=== PATIENT | male | born 1935 | race Hispanic/Latino ===

== ENCOUNTER 2019-04-30 13:24 | Emergency (ER) | payer OTHER ==
[2019-05-01] MEDS ORDERED: BENA40TA9 PO (11:52)
[2019-05-01] MEDS ORDERED: LEVO150T11 PO (11:52)
[2019-05-01] MEDS ORDERED: METF-444 PO (11:52)
[2019-05-01] MEDS ORDERED: ATOR40TA69 PO (11:52)
[2019-05-01] MEDS ORDERED: AMLO10TA7 PO (11:52)
== END 2019-04-30 14:17 | disposition left against medical advice (07) ==
LOC: EDH 13:24
DX: R79.89 Other specified abnormal findings of blood chemistry (principal); I10 Essential (primary) hypertension; E78.00 Pure hypercholesterolemia, unspecified; Z91.041 Radiographic dye allergy status; Z53.21 Procedure and treatment not carried out due to patient leaving prior to being seen by health care provider

== ENCOUNTER → 2019-07-05 | Outpatient (CLI) | payer OTHER ==
[~2019-07-05] MED LIST: AMLO10TA7 PO; ATOR40TA69 PO; BENA40TA9 PO; LEVO150T11 PO; METF-444 PO
[2019-07-05 13:20] LABS: CREATININE 1.4 mg/dL (0.5-1.5)
== END | disposition home or self-care (01) ==
LOC: LAB 12:32
PROVIDERS: ATTEND Internal Medicine Cardiovascular Disease
DX: R07.9 Chest pain, unspecified (principal); I10 Essential (primary) hypertension
CPT/HCPCS: 36415; 82565; 84520